=== PATIENT | female | born 1990 | race Caucasian/White ===

== ENCOUNTER 2018-06-06 16:28 | Inpatient (IN) | payer BC ==
[~2018-06-06] VITALS: Ht 160 cm; Wt 65.1 kg
--- NOTE | ~2018-06-06 | CON ---
[place], [place] REPORT OF CONSULTATION NAME: MEG ALLAN [facility] #: [id number] UNIT #: [id number] ROOM: 505 DOCTOR: PHD NO MENDIOLAINE BIRTHDATE: [birth year] DOS: 06/07/2018 HISTORY OF PRESENT ILLNESS: The patient is a 27-year-old female referred by the hospitalist with concerns for depression. The patient presented to the ED for treatment with [facility] or alcohol withdrawal. At the present time, the patient is on the 5th floor at [facility]. SOCIAL HISTORY: The patient is and lives with her and her parents. She does not have any children. The patient abuses alcohol, drinking 15 beers per day. She denied tobacco use. She occasionally uses marijuana. PAST MEDICAL HISTORY: Bipolar, thyroglossal duct cyst. MEDICATIONS: Folic acid, thiamine, multivitamin, Lovenox, Desyrel, Zofran, Senokot, Vistaril, Nicoderm, Bentyl, Robaxin, Ativan, Librium. PHYSICAL EXAMINATION: The patient is awake, alert and oriented to person, place and time. She was sitting in bed, in no apparent distress. Eye contact and social skills were appropriate. The patient was pleasant and cooperative. Mood was anxious and depressed without suicidal ideation, plan or intent. She denied homicidal ideation. She reports symptoms of anhedonia, subjective sense of sadness, irritability, problems with sleep initiation and maintenance. She has periods lasting about a week or so, irritable and grandiose mood, pressured speech, distractibility, racing thoughts, psychomotor agitation and decreased need for sleep. She has never been psychiatrically hospitalized. Her main concerns are her depression and anxiety, which she states she has been self-medicating with alcohol. She wants to start with family and is cautious about taking psychiatric medications. She was seen at Dr. Fernando's office in the past and was diagnosed with bipolar disorder. Affect was restricted in range. Speech was soft. Expressive and receptive languages were within normal limits. Thought process was linear and goal directed. There was no evidence of hallucinations or delusions. Insight and judgment appeared fair. DIAGNOSES: Alcohol use disorder, bipolar 2 disorder, unspecified anxiety disorder. RECOMMENDATIONS: Consulted with Dr. Ferris about the patient's medications. He suggested Latuda 40 mg at bedtime. The patient is also open to counseling following discharge. Thank you very much for this consult. [place], [place] REPORT OF CONSULTATION [facility]: [id number] UN[facility] #: [id number] ROOM: [facility] DOCTOR: CHIDI, PHD YUMIKO BIRTHDATE: [birth year] Elba Mendiola, PhD CM:CONSTR:REPORT OF CONSULTATION 1630 06/09/18 1003 interface
--- NOTE | ~2018-06-06 | CON ---
[place], [place] REPORT OF CONSULTATION [id number] #: [id number] ROOM: 505 DOCTOR: CHIDI, PHD YUMIKO BIRTHDATE: [birth year] DOS: 06/08/2018 The patient is a 27-year-old female referred by the hospitalist with concerns for anxiety, depression and alcohol abuse. She is presently on the 5th floor at [facility]. She was admitted for alcohol withdrawal and she is receiving services through [facility]. The patient reports concerns about taking psychiatric medication and maintaining sobriety upon returning home. Mood was anxious and affect was restricted. She denied suicidal or homicidal ideation. Discussed strategies and resources to utilize to maintain sobriety. Utilized CBT, motivational interviewing and supportive therapy interventions. The patient appeared to benefit. She will be following up with the counseling center in [place] upon discharge. Thank you very much for this consult. Elba Mendiola, PhD CM:CONSTR:REPORT OF CONSULTATION 1600 06/08/18 2138 interface
[2018-06-06 17:35] VITALS: BP 102/72
[2018-06-06 19:42] LABS: BASO # 0.1 10*3/uL (0.0-0.1); BASO % 0.9 % (0.0-1.0); EOS # 0.1 10*3/uL (0.0-0.4); EOS % 0.9 % (1.0-4.0); HEMATOCRIT 39.1 % (37.0-47.0); HEMOGLOBIN 13.3 g/dl (12.0-16.0); LYMPH # 2.8 10*3/uL (1.3-4.4); LYMPH % 39.5 % (27.0-41.0); MEAN CELL VOLUME 83.9 fl (81.0-99.0); MEAN CORPUSCULAR HGB 28.5 pg (27.0-31.0); MEAN PLATELET VOLUME 9.4 fl (9.6-12.3); MONO # 0.6 10*3/uL (0.1-1.0); MONO % 8.6 % (3.0-9.0); NEUT # 3.5 10*3/uL (2.3-7.9); PLATELET COUNT AUTOMATED 291 10*3/uL (130-400); RED BLOOD COUNT 4.66 10*6/uL (4.10-5.10); RED CELL DISTRI WIDTH 14.3 % (0-14.5)
[2018-06-06 19:52] VITALS: BP 108/70
[2018-06-06 20:00] VITALS: BP 125/76; BP 138/90
[2018-06-06 20:00] LABS: ALBUMIN 4.1 gm/dl (3.1-4.5); ALKALINE PHOSPHATASE 50 U/L (45-117); BUN 5 mg/dl (7-24); CHLORIDE 101 mmol/L (98-107); CREATININE 0.89 mg/dL (0.55-1.02); POTASSIUM 3.4 mmol/L (3.5-5.1); SGOT/AST 44 IU/L (3-35); SGPT/ALT 31 U/L (12-78); SODIUM 138 mmol/L (136-145); TOTAL PROTEIN 7.9 gm/dL (6.4-8.2)
[2018-06-06 20:11] LABS: ETHYL ALCOHOL < 3.0 mg/dl (<3)
[2018-06-06 20:49] LABS: BILIRUBIN NEGATIVE (NEGATIVE); BLOOD NEGATIVE (NEGATIVE); CLARITY CLEAR (CLEAR); COLOR YELLOW (YELLOW); GLUCOSE NEGATIVE (NEGATIVE); KETONE NEGATIVE (NEGATIVE); LEUKO ESTERASE NEGATIVE (NEGATIVE); NITRITE NEGATIVE (NEGATIVE); UROBILINOGEN 0.2 E.U./dl (0.2-1.0)
[2018-06-06 20:57] LABS: BACTERIA TRACE
[2018-06-06 20:58] LABS: RBC 0-2 rbc/hpf (0-2); WBC 0-2 wbc/hpf (0-5)
[2018-06-07] VITALS: BP 123/66
[2018-06-07 05:59] LABS: URINE AMPHETAMINES < 1000 (1000ng/ml); URINE BARBITURATES < 200 (200ng/ml); URINE BENZODIAZEPINES > 200 (200ng/ml); URINE CANNABINOIDS (THC) > 50 (50ng/ml); URINE COCAINE < 300 (300ng/ml); URINE METHADONE < 300 (300ng/ml); URINE OPIATES < 300 (300ng/ml)
[2018-06-07 06:13] LABS: URINE PHENCYCLIDINE < 25 (25ng/ml)
[2018-06-07 12:00] VITALS: BP 104/61
[2018-06-07 16:00] VITALS: BP 108/67
[2018-06-07 20:00] VITALS: BP 107/71
[2018-06-08] VITALS: BP 109/62
[2018-06-08 06:42] LABS: BUN 7 mg/dl (7-24); CHLORIDE 108 mmol/L (98-107); SODIUM 143 mmol/L (136-145)
[2018-06-08 06:43] LABS: CREATININE 0.88 mg/dL (0.55-1.02)
[2018-06-08 12:00] VITALS: BP 102/63
[2018-06-08 16:00] VITALS: BP 104/59
[2018-06-08 20:00] VITALS: BP 124/74
[2018-06-09] VITALS: BP 111/65
[2018-06-09 06:54] LABS: BASO % 0.8 % (0.0-1.0); EOS # 0.1 10*3/uL (0.0-0.4); EOS % 2.5 % (1.0-4.0); HEMATOCRIT 36.7 % (37.0-47.0); HEMOGLOBIN 11.9 g/dl (12.0-16.0); LYMPH # 2.8 10*3/uL (1.3-4.4); MEAN CELL VOLUME 87.6 fl (81.0-99.0); MEAN CORPUSCULAR HGB 28.4 pg (27.0-31.0); MEAN CORPUSCULAR HGB CONC 32.4 g/dl (33.0-37.0); MEAN PLATELET VOLUME 10.4 fl (9.6-12.3); MONO # 0.4 10*3/uL (0.1-1.0); MONO % 7.7 % (3.0-9.0); NEUT # 1.9 10*3/uL (2.3-7.9); PLATELET COUNT AUTOMATED 217 10*3/uL (130-400); RED BLOOD COUNT 4.19 10*6/uL (4.10-5.10); RED CELL DISTRI WIDTH 14.6 % (0-14.5); WHITE BLOOD COUNT 5.3 10*3/uL (4.8-10.8)
[2018-06-09 07:13] LABS: CREATININE 0.88 mg/dL (0.55-1.02)
[2018-06-09 08:00] VITALS: BP 90/64
[2018-06-09] MEDS ORDERED: ATARAX,VISTARIL50 MG PO (11:58)
[2018-06-09] MEDS ORDERED: NATURE'S BLEND100 M2 PO (11:58)
[2018-06-09] MEDS ORDERED: LATU40TA PO (11:58)
[2018-06-09] MEDS ORDERED: NATURE'S BLEND F1 MG PO (11:58)
== END 2018-06-09 17:52 | disposition home or self-care (01) | DRG 641 ==
LOC: 5E 16:28
PROVIDERS: Internal Medicine
DX: E87.6 Hypokalemia (principal); F10.232 Alcohol dependence with withdrawal with perceptual disturbance; F31.81 Bipolar II disorder; R45.1 Restlessness and agitation; Y90.9 Presence of alcohol in blood, level not specified; E66.3 Overweight; F41.9 Anxiety disorder, unspecified; F12.10 Cannabis abuse, uncomplicated; R74.0 Nonspecific elevation of levels of transaminase and lactic acid dehydrogenase [LDH]; R73.9 Hyperglycemia, unspecified; R00.1 Bradycardia, unspecified; Z82.49 Family history of ischemic heart disease and other diseases of the circulatory system; Z79.899 Other long term (current) drug therapy; Z68.25 Body mass index [BMI] 25.0-25.9, adult

== ENCOUNTER 2018-07-05 11:46 | Inpatient (IN) | payer BC ==
[~2018-07-05] VITALS: Ht 160 cm; Wt 62.1 kg
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
--- NOTE | ~2018-07-05 | PR ---
[place], [place] PROGRESS NOTE NAME: MEG ALLAN [facility] #: [id number] UNIT #: [id number] ROOM: [facility] DOCTOR: CHIDI, PHD YUMIKO BIRTHDATE: [birth year] DOS: 07/06/2018 SUBJECTIVE: The patient was sitting in bed, in no apparent distress. Her was present. She reports continued depression and affect was tearful. She firmly denied thoughts of suicidal ideation, plan or intent. Discussed feelings of uncertainty about her future and how she believes she has more of a mental health problem than substance abuse problem. Explored the patient's treatment goals. She is treatment motivated. [facility] staff and Becky Xiong are following for discharge planning. Thank you very much for this consult. Elba Mendiola, PhD CM:CINDY [id number] PHD YUMIKO MENDIOLA 07/07/18 0559 interface
[~2018-07-05 11:46] MED LIST: ATARAX,VISTARIL50 MG PO; LATU40TA PO; NATURE'S BLEND F1 MG PO; NATURE'S BLEND100 M2 PO
[2018-07-05 11:50] VITALS: BP 137/92
[2018-07-05 12:15] LABS: BILIRUBIN NEGATIVE (NEGATIVE); BLOOD NEGATIVE (NEGATIVE); CLARITY SL CLOUDY (CLEAR); COLOR YELLOW (YELLOW); GLUCOSE NEGATIVE (NEGATIVE); KETONE NEGATIVE (NEGATIVE); LEUKO ESTERASE NEGATIVE (NEGATIVE); NITRITE NEGATIVE (NEGATIVE); PH 8.5 (5.0-9.0); UROBILINOGEN 0.2 E.U./dl (0.2-1.0)
[2018-07-05 12:23] LABS: URINE AMPHETAMINES < 1000 (1000ng/ml); URINE BARBITURATES < 200 (200ng/ml); URINE BENZODIAZEPINES < 200 (200ng/ml); URINE CANNABINOIDS (THC) > 50 (50ng/ml); URINE COCAINE < 300 (300ng/ml); URINE METHADONE < 300 (300ng/ml); URINE OPIATES < 300 (300ng/ml)
[2018-07-05 12:27] LABS: BACTERIA 2+; EPITHELIAL CELLS 20-25; RBC 0-2 rbc/hpf (0-2); URINE PHENCYCLIDINE < 25 (25ng/ml); WBC 0-2 wbc/hpf (0-5)
[2018-07-05 12:50] LABS: BASO # 0.1 10*3/uL (0.0-0.1); BASO % 0.8 % (0.0-1.0); EOS % 0.3 % (1.0-4.0); HEMATOCRIT 39.3 % (37.0-47.0); HEMOGLOBIN 12.9 g/dl (12.0-16.0); LYMPH # 1.8 10*3/uL (1.3-4.4); LYMPH % 25.1 % (27.0-41.0); MEAN CELL VOLUME 87.7 fl (81.0-99.0); MEAN CORPUSCULAR HGB 28.8 pg (27.0-31.0); MEAN CORPUSCULAR HGB CONC 32.8 g/dl (33.0-37.0); MEAN PLATELET VOLUME 9.5 fl (9.6-12.3); MONO # 0.4 10*3/uL (0.1-1.0); NEUT # 4.9 10*3/uL (2.3-7.9); NEUT % 68.7 % (47.0-73.0); PLATELET COUNT AUTOMATED 270 10*3/uL (130-400); RED BLOOD COUNT 4.48 10*6/uL (4.10-5.10); RED CELL DISTRI WIDTH 14.2 % (0-14.5); WHITE BLOOD COUNT 7.2 10*3/uL (4.8-10.8)
[2018-07-05 13:07] LABS: ALBUMIN 4.2 gm/dl (3.1-4.5); ALKALINE PHOSPHATASE 44 U/L (45-117); BUN 9 mg/dl (7-24); CHLORIDE 104 mmol/L (98-107); LIPASE 235 U/L (73-393); POTASSIUM 4.3 mmol/L (3.5-5.1); SGOT/AST 22 IU/L (3-35); SGPT/ALT 27 U/L (12-78); SODIUM 137 mmol/L (136-145); TOTAL PROTEIN 7.4 gm/dL (6.4-8.2)
[2018-07-05 13:12] LABS: BETA-HCG, QUANT < 1.0 mIU/mL (1-3)
[2018-07-05 13:45] VITALS: BP 105/72
[2018-07-05 16:00] VITALS: BP 111/66
[2018-07-05 20:00] VITALS: BP 102/63
[2018-07-06] VITALS: BP 92/57
[2018-07-06 06:22] LABS: BASO # 0.1 10*3/uL (0.0-0.1); BASO % 0.9 % (0.0-1.0); EOS # 0.1 10*3/uL (0.0-0.4); EOS % 2.6 % (1.0-4.0); HEMATOCRIT 36.1 % (37.0-47.0); HEMOGLOBIN 11.7 g/dl (12.0-16.0); LYMPH # 2.4 10*3/uL (1.3-4.4); MEAN CELL VOLUME 88.9 fl (81.0-99.0); MEAN CORPUSCULAR HGB 28.8 pg (27.0-31.0); MEAN CORPUSCULAR HGB CONC 32.4 g/dl (33.0-37.0); MEAN PLATELET VOLUME 9.6 fl (9.6-12.3); MONO # 0.6 10*3/uL (0.1-1.0); MONO % 10.7 % (3.0-9.0); NEUT # 2.2 10*3/uL (2.3-7.9); NEUT % 41.6 % (47.0-73.0); PLATELET COUNT AUTOMATED 242 10*3/uL (130-400); RED BLOOD COUNT 4.06 10*6/uL (4.10-5.10); RED CELL DISTRI WIDTH 13.7 % (0-14.5); WHITE BLOOD COUNT 5.3 10*3/uL (4.8-10.8)
[2018-07-06 06:51] LABS: ALBUMIN 3.4 gm/dl (3.1-4.5); ALKALINE PHOSPHATASE 36 U/L (45-117); BUN 9 mg/dl (7-24); CHLORIDE 107 mmol/L (98-107); CHOLESTEROL 158 mg/dL (<200); CREATININE 0.82 mg/dL (0.55-1.02); FREE T4 0.85 ng/dl (0.76-1.46); HDL CHOLESTEROL 78 mg/dl (40-60); LDL CHOLESTEROL 48 mg/dL (9-159); SGOT/AST 17 IU/L (3-35); SGPT/ALT 20 U/L (12-78); SODIUM 139 mmol/L (136-145); TOTAL PROTEIN 6.1 gm/dL (6.4-8.2); TRIGLYCERIDES 158 mg/dl (<150); VLDL CHOLESTEROL 32 mg/dL (6-40)
[2018-07-06 06:55] LABS: THYROID STIM HORMONE (HS) 0.463 uIU/ml (0.358-4.75)
[2018-07-06 07:47] LABS: VITAMIN D, 25-HYDROXY 24.2 ng/mL (30-100)
[2018-07-06 08:00] VITALS: BP 98/81
[2018-07-06 12:55] VITALS: BP 114/77
[2018-07-06 16:00] VITALS: BP 127/89
[2018-07-06 20:00] VITALS: BP 124/97
[2018-07-07] VITALS: BP 103/54
[2018-07-07 04:30] VITALS: BP 90/58
[2018-07-07 08:00] VITALS: BP 104/61
[2018-07-07 12:00] VITALS: BP 102/65
[2018-07-07 16:00] VITALS: BP 92/48
[2018-07-07 20:00] VITALS: BP 105/64
[2018-07-08] VITALS: BP 98/52
[2018-07-08 04:00] VITALS: BP 94/48
[2018-07-08 08:00] VITALS: BP 104/63
[2018-07-08 12:00] VITALS: BP 111/66
[2018-07-08 16:00] VITALS: BP 101/64
[2018-07-08 20:00] VITALS: BP 105/63
== END 2018-07-08 22:38 | disposition short-term general hospital (02) | DRG 897 ==
LOC: ED 11:46 → ICCU 12:43 → 5E 12:43 → ICCU 13:33 → 5E 16:53 → ICCU 07-06 15:54
PROVIDERS: Emergency Medicine; Internal Medicine
DX: F10.239 Alcohol dependence with withdrawal, unspecified (principal); R45.851 Suicidal ideations; F31.81 Bipolar II disorder; F41.9 Anxiety disorder, unspecified; Y90.9 Presence of alcohol in blood, level not specified; F10.29 Alcohol dependence with unspecified alcohol-induced disorder; D72.810 Lymphocytopenia; F12.10 Cannabis abuse, uncomplicated; R82.71 Bacteriuria; Z82.49 Family history of ischemic heart disease and other diseases of the circulatory system

== ENCOUNTER → 2018-10-02 | Outpatient (CLI) | payer BC ==
[~2018-10-02] MED LIST changes: +ONE DAILY WOME1 EACH PO; +THIAMINE HCL100 MG PO
== END | disposition home or self-care (01) ==
LOC: RAD 15:27
DX: S22.31XA Fracture of one rib, right side, initial encounter for closed fracture (principal); N64.4 Mastodynia; X58.XXXA Exposure to other specified factors, initial encounter; Y93.89 Activity, other specified; Y92.89 Other specified places as the place of occurrence of the external cause; Y99.8 Other external cause status

== ENCOUNTER 2019-02-02 15:20 | Emergency (ER) | payer BC ==
[~2019-02-02] VITALS: Ht 160 cm; Wt 63.5 kg
[~2019-02-02 15:20] MED LIST changes: -ONE DAILY WOME1 EACH PO; -THIAMINE HCL100 MG PO
[2019-02-02 15:55] LABS: BILIRUBIN NEGATIVE (NEGATIVE); BLOOD TRACE-LYSED (NEGATIVE); CLARITY CLEAR (CLEAR); COLOR YELLOW (YELLOW); GLUCOSE NEGATIVE (NEGATIVE); KETONE NEGATIVE (NEGATIVE); LEUKO ESTERASE NEGATIVE (NEGATIVE); NITRITE NEGATIVE (NEGATIVE); PH 7.5 (5.0-9.0); SPECIFIC GRAVITY 1.015 (1.005-1.030); UROBILINOGEN 0.2 E.U./dl (0.2-1.0)
[2019-02-02 16:00] LABS: BACTERIA 1+; WBC 0-2 wbc/hpf (0-5)
[2019-02-02 16:05] LABS: BASO # 0.1 10*3/uL (0.0-0.1); BASO % 1.2 % (0.0-1.0); EOS # 0.1 10*3/uL (0.0-0.4); EOS % 1.5 % (1.0-4.0); HEMATOCRIT 39.9 % (37.0-47.0); HEMOGLOBIN 13.7 g/dl (12.0-16.0); LYMPH # 1.5 10*3/uL (1.3-4.4); LYMPH % 35.9 % (27.0-41.0); MEAN CELL VOLUME 89.1 fl (81.0-99.0); MEAN CORPUSCULAR HGB 30.6 pg (27.0-31.0); MEAN CORPUSCULAR HGB CONC 34.3 g/dl (33.0-37.0); MEAN PLATELET VOLUME 9.3 fl (9.6-12.3); MONO # 0.3 10*3/uL (0.1-1.0); MONO % 8.1 % (3.0-9.0); NEUT # 2.2 10*3/uL (2.3-7.9); NEUT % 53.3 % (47.0-73.0); PLATELET COUNT AUTOMATED 219 10*3/uL (130-400); RED BLOOD COUNT 4.48 10*6/uL (4.10-5.10); RED CELL DISTRI WIDTH 14.2 % (0-14.5); WHITE BLOOD COUNT 4.1 10*3/uL (4.8-10.8)
[2019-02-02 16:20] LABS: ALBUMIN 3.9 gm/dl (3.1-4.5); ALKALINE PHOSPHATASE 48 U/L (45-117); BUN 13 mg/dl (7-24); CHLORIDE 105 mmol/L (98-107); CREATININE 0.81 mg/dL (0.55-1.02); POTASSIUM 4.7 mmol/L (3.5-5.1); SGOT/AST 47 IU/L (3-35); SGPT/ALT 45 U/L (12-78); SODIUM 139 mmol/L (136-145); TOTAL PROTEIN 7.2 gm/dL (6.4-8.2)
[2019-02-02 16:22] LABS: URINE AMPHETAMINES < 1000 (1000ng/ml); URINE BARBITURATES < 200 (200ng/ml); URINE BENZODIAZEPINES < 200 (200ng/ml); URINE CANNABINOIDS (THC) < 50 (50ng/ml); URINE COCAINE < 300 (300ng/ml); URINE METHADONE < 300 (300ng/ml); URINE OPIATES < 300 (300ng/ml)
[2019-02-02 16:23] LABS: URINE PHENCYCLIDINE < 25 (25ng/ml)
[2019-02-02 16:28] LABS: THYROID STIM HORMONE (HS) 0.359 uIU/ml (0.358-4.75)
[2019-02-02] MEDS ORDERED: ONE DAILY WOME1 EACH PO (17:07)
[2019-02-02] MEDS ORDERED: THIAMINE HCL100 MG PO (17:07)
== END 2019-02-02 18:02 | disposition home or self-care (01) ==
LOC: ED 15:20
PROVIDERS: Emergency Medicine
DX: F10.239 Alcohol dependence with withdrawal, unspecified (principal); R11.2 Nausea with vomiting, unspecified; R19.7 Diarrhea, unspecified; R52 Pain, unspecified; R05 Cough; F12.10 Cannabis abuse, uncomplicated; Z79.899 Other long term (current) drug therapy; Y90.0 Blood alcohol level of less than 20 mg/100 ml

== ENCOUNTER → 2020-03-18 | Outpatient (CLI) | payer BC ==
[~2020-03-18] MED LIST changes: +ONE DAILY WOME1 EACH PO; +THIAMINE HCL100 MG PO
== END | disposition home or self-care (01) ==
LOC: US 11:30
DX: Z33.1 Pregnant state, incidental (principal)

== ENCOUNTER → 2020-06-27 | Outpatient (CLI) | payer BC | END | disposition home or self-care (01) | LOC: US 12:47 | PROVIDERS: ATTEND Nurse Practitioner Women's Health | DX: Z34.02 Encounter for supervision of normal first pregnancy, second trimester (principal); Z3A.24 24 weeks gestation of pregnancy ==

== ENCOUNTER → 2020-08-26 | Outpatient (CLI) | payer BC | END | disposition home or self-care (01) | LOC: US 13:26 | PROVIDERS: ATTEND Nurse Practitioner Women's Health | DX: O43.893 Other placental disorders, third trimester (principal); Z3A.33 33 weeks gestation of pregnancy ==

== ENCOUNTER → 2020-09-09 | Outpatient (CLI) | payer BC | END | disposition home or self-care (01) | LOC: COVID19 11:07 | PROVIDERS: ATTEND Nurse Practitioner Women's Health | DX: O98.513 Other viral diseases complicating pregnancy, third trimester (principal); U07.1 COVID-19; R43.2 Parageusia; Z3A.35 35 weeks gestation of pregnancy ==

== ENCOUNTER → 2020-09-23 | Outpatient (CLI) | payer BC | END | disposition home or self-care (01) | LOC: US 09-22 09:00 | PROVIDERS: ATTEND Nurse Practitioner Women's Health | DX: O43.103 Malformation of placenta, unspecified, third trimester (principal); Z3A.37 37 weeks gestation of pregnancy ==

== ENCOUNTER → 2020-09-25 | Outpatient (CLI) | payer BC | END | disposition home or self-care (01) | LOC: COVID19 11:09 | PROVIDERS: ATTEND Obstetrics & Gynecology | DX: Z20.822 Contact with and (suspected) exposure to COVID-19 (principal); Z34.03 Encounter for supervision of normal first pregnancy, third trimester; Z3A.37 37 weeks gestation of pregnancy ==

== ENCOUNTER → 2020-09-30 | Outpatient (CLI) | payer BC | END | disposition home or self-care (01) | LOC: US 14:30 | PROVIDERS: ATTEND Obstetrics & Gynecology | DX: Z34.03 Encounter for supervision of normal first pregnancy, third trimester (principal); Z3A.38 38 weeks gestation of pregnancy ==

== ENCOUNTER 2021-03-25 07:05 | Emergency (ER) | payer BC ==
[~2021-03-25] VITALS: Wt 67.1 kg
[2021-03-25] MEDS ORDERED: CYCLOBENZAPRINE5 M3 PO (07:46)
[2021-03-25] MEDS ORDERED: PREDNISONE50 MG PO (07:46)
== END 2021-03-25 07:59 | disposition home or self-care (01) ==
LOC: ED 07:05
DX: M62.838 Other muscle spasm (principal); M25.511 Pain in right shoulder; Z79.899 Other long term (current) drug therapy; Z98.890 Other specified postprocedural states

== ENCOUNTER → 2024-05-22 | Outpatient (CLI) | payer BC ==
[~2024-05-22] MED LIST changes: +CYCLOBENZAPRINE5 M3 PO; +PREDNISONE50 MG PO
[2024-05-22 14:28] LABS: BASO # 0.1 10*3/uL (0.0-0.1); EOS # 0.1 10*3/uL (0.0-0.4); EOS % 1.5 % (1.0-4.0); HEMATOCRIT 36.3 % (37.0-47.0); LYMPH # 2.1 10*3/uL (1.3-4.4); LYMPH % 39.9 % (27.0-41.0); MEAN CELL VOLUME 89.4 fl (81.0-99.0); MEAN CORPUSCULAR HGB 28.6 pg (27.0-31.0); MONO # 0.4 10*3/uL (0.1-1.0); MONO % 7.6 % (3.0-9.0); NEUT # 2.6 10*3/uL (2.3-7.9); NEUT % 49.8 % (47.0-73.0); PLATELET COUNT AUTOMATED 325 10*3/uL (130-400); RED BLOOD COUNT 4.06 10*6/uL (4.10-5.10); RED CELL DISTRI WIDTH 13.4 % (0-14.5); WHITE BLOOD COUNT 5.3 10*3/uL (4.8-10.8)
[2024-05-22 14:54] LABS: ALKALINE PHOSPHATASE 48 U/L (46-116); BUN 10 mg/dl (9-23); CHLORIDE 104 mmol/L (98-107); CHOLESTEROL 184 mg/dL (<200); LDL CHOLESTEROL 92 mg/dL (9-159); SGPT/ALT 13 U/L (5-49); TOTAL PROTEIN 7.1 gm/dL (6.0-8.0); TRIGLYCERIDES 169 mg/dl (<150)
[2024-05-22 14:55] LABS: VITAMIN D, 25-HYDROXY 48.7 ng/mL (30-100)
== END | disposition home or self-care (01) ==
LOC: LAB 13:22
PROVIDERS: ATTEND Nurse Practitioner
DX: F31.31 Bipolar disorder, current episode depressed, mild (principal)